=== PATIENT | female | born 1960 | race Caucasian/White ===

== ENCOUNTER 2019-09-09 20:26 | Emergency (ER) | payer BC, SELFPAY ==
[2019-09-09 20:32] VITALS: BP 158/78; PULSE 88; RESP 19; TEMP 36.7; O2SAT 100; BMI 19.7
[2019-09-09 20:45] VITALS: BP 158/78; PULSE 88; RESP 19; TEMP 36.7; O2SAT 100
--- NOTE | 2019-09-09 20:47 | HMH.EDUTC ---
[facility] [place] Disposition Clinical Impression: Eye problem Disposition: Home, Self-Care Condition on Discharge: Good Instructions: Eye Contusion, Erythromycin Ophthalmic Additional Instructions: Wash hands well before and after application of Erythromycin ointment *FOllow up with Eye Doctor tomorrow if no improvement or any worsening of symptoms such as pain, blurry vision etc Return if needed Straight to ER if any life threatening symptoms Follow up with [facility] if still having eppisodes of blurry vision tomorrow Use erythromycin ointment four times daily for 5 days Prescriptions: Erythromycin Base [Erythromycin 3.5gm opth oinment] 1 applicatio EYE-LEFT QID 5 Days #1 tube Transmission Status: Pending to [id number] Referrals: Williams Aparicio MD [Primary Care Provider] - As needed [facility] [Other] (Follow up tomorrow if any blurry vision or pain) Time of Disposition: 21:07 Medical Decision Making - Sina Inquiry Pt receiving controlled substance: No Sina was queried for this patient: No Vital Signs: 09/09/19 20:32 09/09/19 20:45 Temperature 98.0 F 98.0 F Temperature Source Oral Pulse Rate 88 Pulse Rate [Left] 88 Respiratory Rate 19 19 Blood Pressure 158/78 H Blood Pressure [Right Arm] 158/78 H Blood Pressure Mean [Right Arm] 104 Blood Pressure Source [Right Arm] Automatic Cuff Blood Pressure Position [Right Arm] Sitting 02 Sat by Pulse Oximetry 100 Oxygen Delivery Method Room Air Room Air Orders (Tests/Meds): ED MEDICATIONS Discontinued Medications Generic Name Dose Route Start Last Admin Trade Name Freq PRN Reason Stop Dose Admin Erythromycin 1 gm 09/09/19 20:48 09/09/19 20:52 Erythromycin 1gm Opth Ointment OP 09/09/19 20:49 1 gm ONCE ONE Administration - Physician Consults Physician Consulted: Dr Davis Time: 20:50 Reason -: Opthalmology Eval/Care Comment/Response: Spoke with Dr Davis about patient complaint and injury patient states that derick day poked into her left eye, denies pain, no photophobia able to open eye and move eye around without pain or discomfort. Dr Davis recommended erythromycin ointment QID and have patient follow up tomorrow in clinic if still having hazy/blurry vision for further evaluation and treatment [facility] [place] HPI - General Stated complaint: [id number] @1900 scratch to eye Time Seen by Provider: 09/09/19 20:35 Mode of Arrival: Ambulatory Source of Information: Patient Limitations: No Limitations Description of Symptoms (Recalled from Triage Doc. by RN): Pt c/o of left eye pain. Pt was pulling weeds around her [place] bushes and when she bent over the thorn poked her in her left eye HEENT Symptoms (Recalled from RN notes): Yes Resp Symptoms (Recalled from RN notes): No Skin Symptoms (Recalled from RN notes): No MS Symptoms (Recalled from RN notes): No Functional Status (Recalled from RN notes): stable - History of Present Illness Provider Complaint: Patient states that she was pulling weeds from her flower bed when she bent over and a thorn poked her in her left eye States that she is not having pain in the eye just vision at times feels a little blurry and does not hurt States that she was going to lay down and follow up with eye doctor tomorrow but she called the nurse line and they recommended she come in and get checked - Related Data Previous Rx's Medication Instructions Recorded Erythromycin Base [Erythromycin 1 applicatio EYE-LEFT QID 5 Days 09/09/19 3.5gm opth oinment] #1 tube Allergies Allergy/AdvReac Type Severity Reaction Status Date / Time SULFA (SULFONAMIDE) Allergy Intermediate I-RASH Uncoded 02/01/17 15:07 From MINOCYCLINE HCL AdvReac Unknown NA-NAUSEA/V Uncoded 02/01/17 15:07 OMITING - Worker's Comp Is this a Worker's Comp case?: No Is this an [facility] Worker's Comp?: No Is this a [place] Worker's Comp?: No [facility] History - Hepatitis A Screen Drug use history?: No High risk se
== END 2019-09-09 21:12 | disposition home or self-care (01) ==
PROVIDERS: Emergency Provider Nurse Practitioner; PCP Internal Medicine Adolescent Medicine
DX: S05.02XA Injury of conjunctiva and corneal abrasion without foreign body, left eye, initial encounter (principal); W22.8XXA Striking against or struck by other objects, initial encounter; Y92.017 Garden or yard in single-family (private) house as the place of occurrence of the external cause; Z88.2 Allergy status to sulfonamides
CPT/HCPCS: 99201

== ENCOUNTER 2023-10-29 08:04 | Outpatient (CLI) | payer BC, SELFPAY ==
[2023-10-29 08:42] LABS: Adenovirus F 40/41, stool Not Detected (NotDetected); Astrovirus Not Detected (NotDetected); Campylobacter Not Detected (NotDetected); Clostridium Difficile A/B, PCR Not Detected (NotDetected); Cryptosporidium Not Detected (NotDetected); Cyclospora Cayetanesis Not Detected (NotDetected); Entamoeba histolytica Not Detected (NotDetected); Enteroaggregative E coli Not Detected (NotDetected); Enteropathogenic E coli Not Detected (NotDetected); Enterotoxigenic E coli Not Detected (NotDetected); Giardia lamblia Not Detected (NotDetected); Norovirus Not Detected (NotDetected); Plesimonas Shigalloides, PCR Not Detected (NotDetected); Rotavirus A Not Detected (NotDetected); Salmonella, PCR Not Detected (NotDetected); Sapovirus Not Detected (NotDetected); Shiga-like toxin E coli Not Detected (NotDetected); Shigella Enterovasive E coli Not Detected (NotDetected); Vibrio Cholerae Not Detected (NotDetected); Vibrio, PCR Not Detected (NotDetected); Yersinia Entercolitica, PCR Not Detected (NotDetected)
== END 2023-10-29 23:59 | disposition home or self-care (01) ==
LOC: LAB.DROPOF 08:05
PROVIDERS: PCP Internal Medicine Adolescent Medicine; Visit Provider Internal Medicine Adolescent Medicine
DX: A04.72 Enterocolitis due to Clostridium difficile, not specified as recurrent (principal)
CPT/HCPCS: 87507